=== PATIENT | male | born 1965 | race African-American/Black ===

== ENCOUNTER 2018-09-06 21:19 | Inpatient (IN) | payer MEDICAID ==
[~2018-09-06] VITALS: Ht 188 cm; Wt 147.4 kg
[2018-09-06] MEDS ORDERED: ASPIRIN 81MG TABLET PO ONE (22:45)
[2018-09-06 22:54] LABS: CHLORIDE 102 mEq/L (98-107)
[2018-09-06 22:55] LABS: BASOPHILS % 0.2 % (0.0-2.0); EOSINOPHILS % 1.9 % (0.0-5.0); HEMATOCRIT. 48.1 % (42.0-52.0); HEMOGLOBIN. 16.2 g/dL (14.0-18.0); LYMPHOCYTES % 38.4 % (20.0-50.0); MEAN CORPUSCULAR HEMOGLOBIN 27.8 pg (28.0-32.0); MEAN CORPUSCULAR VOLUME 82.5 fL (80.0-94.0); MEAN PLATELET VOLUME 8.6 fl (7.4-10.4); MONOCYTES % 9.9 % (2.0-8.0); NEUTROPHILS % 49.6 % (40.0-76.0); PLATELET 258 x1000/uL (130-400); PROTHROMBIN TIME 10.3 sec (9.6-11.0); RED BLOOD CELL COUNT 5.83 mill/uL (4.7-6.1); RED CELL DISTRIBUTION WIDTH 14.7 % (11.6-14.6)
[2018-09-06 22:59] LABS: ETHANOL BLOOD < 10 mg/dL
[2018-09-07] LABS: *AMPHETAMINES SCREEN URINE NEGATIVE (NEGATIVE); *BARBITURATES SCREEN URINE NEGATIVE (NEGATIVE); *BENZODIAZEPINES SCREEN URINE PRESUMTIVE POSITIVE (NEGATIVE); *COCAINE SCREEN URINE NEGATIVE (NEGATIVE)
[2018-09-07 00:02] LABS: CANNABINOID URINE SCREEN NEGATIVE (NEGATIVE); METHADONE URINE SCREEN NEGATIVE (NEGATIVE); OPIATES URINE SCREEN NEGATIVE (NEGATIVE); PHENCYCLIDINE URINE SCREEN NEGATIVE (NEGATIVE)
[2018-09-07 05:09] VITALS: BP 117/77
[2018-09-07] MEDS ORDERED: RIFA300C4 PO (05:27)
[2018-09-07] MEDS ORDERED: NEO/5DRO7 OP (05:27)
[2018-09-07] MEDS ORDERED: PRED12O OP (05:27)
[2018-09-07] MEDS ORDERED: NEPA1.7D OP (05:27)
[2018-09-07] MEDS ORDERED: hydrochlorothiazide (07:31)
[2018-09-07] MEDS ORDERED: amlodipine (07:31)
[2018-09-07 08:00] VITALS: BP 122/67
[2018-09-07] MEDS ORDERED: TETRACAINE 0.5% OPHTH DROPS 4ML ONE (08:52)
[2018-09-07] MEDS ORDERED: HYDROCODONE/ACETAMINOPHEN 5/325MG TABLET PO PRN (09:30)
[2018-09-07] MEDS ORDERED: DIPHENHYDRAMINE 50MG/ML VIAL IV PRN (09:30)
[2018-09-07] MEDS ORDERED: CLONIDINE 0.1MG TABLET PO PRN (09:30)
[2018-09-07] MEDS ORDERED: IPRATROPIUM/ALBUTEROL 0.5-3(2.5)MG/3ML NEB INH PRN (09:30)
[2018-09-07] MEDS ORDERED: ONDANSETRON HCL 4MG/2ML INJ IV PRN (09:30)
[2018-09-07] MEDS ORDERED: MORPHINE SULFATE 2 MG/ML CPJ (NOT FOR IM USE) IV PRN (09:30)
[2018-09-07] MEDS ORDERED: GUAIFENESIN 200MG/10ML SUGAR FREE UDC PO PRN (09:30)
[2018-09-07] MEDS ORDERED: ACETAMINOPHEN 325MG TABLET PO PRN (09:30)
[2018-09-07] MEDS ORDERED: DOCUSATE SODIUM 100MG CAPSULE PO PRN (09:30)
[2018-09-07] MEDS ORDERED: MAGNESIUM/ALUMINUM HYDROXIDE/SIMETHICONE 30ML UDC PO PRN (09:30)
[2018-09-07] MEDS ORDERED: DILTIAZEM HCL 5MG/ML 5ML VIAL IV NR (10:30)
[2018-09-07 11:25] VITALS: BP 132/85
[2018-09-07 12:04] LABS: BASOPHILS % 0.2 % (0.0-2.0); EOSINOPHILS % 1.5 % (0.0-5.0); HEMATOCRIT. 45.1 % (42.0-52.0); HEMOGLOBIN. 15.1 g/dL (14.0-18.0); LYMPHOCYTES % 37.1 % (20.0-50.0); MEAN CORPUSCULAR HEMOGLOBIN 27.6 pg (28.0-32.0); MEAN CORPUSCULAR VOLUME 82.4 fL (80.0-94.0); MEAN PLATELET VOLUME 8.5 fl (7.4-10.4); MONOCYTES % 8.4 % (2.0-8.0); NEUTROPHILS % 52.8 % (40.0-76.0); PLATELET 254 x1000/uL (130-400); RED BLOOD CELL COUNT 5.47 mill/uL (4.7-6.1); RED CELL DISTRIBUTION WIDTH 14.3 % (11.6-14.6)
[2018-09-07 12:13] LABS: CHLORIDE 102 mEq/L (98-107)
[2018-09-07 12:20] LABS: PHOSPHORUS 3.7 mg/dL (2.5-4.9)
[2018-09-07] MEDS ORDERED: AMIODARONE HCL 150 MG in DEXT 5% WATER 100 ML IV NR (13:00)
[2018-09-07] MEDS: APIXABAN 5 MG TABLET PO SCH ×2 (14:52→20:47)
[2018-09-07] MEDS: PREDNISOLONE ACETATE 1% OPHTH DROPS 1ML RIGHTEYE SCH ×4 (14:53→20:47)
[2018-09-07] MEDS: CIPROFLOXACIN 0.3% OPHTH SOLN 2.5ML RIGHTEYE SCH ×3 (14:53→20:53)
[2018-09-07 16:09] VITALS: BP 124/73
[2018-09-07] MEDS: AMIODARONE HCL 900 MG in DEXT 5% WATER 500 ML IV SCH (17:00)
[2018-09-07 20:00] VITALS: BP 120/82
[2018-09-07] MEDS: METOPROLOL TARTRATE 25MG TABLET PO SCH (20:46)
[2018-09-07 22:00] VITALS: BP 129/72
[2018-09-08] VITALS (15 sets, daily range): BP systolic 119–155; BP diastolic 45–107
[2018-09-08 00:22] LABS: CREATINE KINASE MB FRACTION 5.2 ng/mL (0.5-3.6)
[2018-09-08 06:43] LABS: BASOPHILS % 0.3 % (0.0-2.0); EOSINOPHILS % 1.6 % (0.0-5.0); HEMATOCRIT. 44.9 % (42.0-52.0); HEMOGLOBIN. 15.2 g/dL (14.0-18.0); LYMPHOCYTES % 36.8 % (20.0-50.0); MEAN CORPUSCULAR HEMOGLOBIN 28.1 pg (28.0-32.0); MEAN CORPUSCULAR VOLUME 83.3 fL (80.0-94.0); MEAN PLATELET VOLUME 8.5 fl (7.4-10.4); MONOCYTES % 7.8 % (2.0-8.0); NEUTROPHILS % 53.5 % (40.0-76.0); PLATELET 236 x1000/uL (130-400); RED BLOOD CELL COUNT 5.39 mill/uL (4.7-6.1); RED CELL DISTRIBUTION WIDTH 14.5 % (11.6-14.6)
[2018-09-08 07:13] LABS: CHLORIDE 103 mEq/L (98-107)
[2018-09-08 07:21] LABS: HDL CHOLESTEROL 46 mg/dL (40-59); LDL CHOLESTEROL 84 mg/dL (5-100)
[2018-09-08] MEDS: APIXABAN 5 MG TABLET PO SCH ×2 (07:50→21:09)
[2018-09-08] MEDS: PREDNISOLONE ACETATE 1% OPHTH DROPS 1ML RIGHTEYE SCH ×7 (07:52→21:07)
[2018-09-08] MEDS: METOPROLOL TARTRATE 25MG TABLET PO SCH (07:52)
[2018-09-08] MEDS: CIPROFLOXACIN 0.3% OPHTH SOLN 2.5ML RIGHTEYE SCH ×4 (07:53→21:55)
[2018-09-08] MEDS: LOSARTAN POTASSIUM 25 MG TABLET PO SCH ×2 (11:48→21:08)
[2018-09-08] MEDS: AMIODARONE HCL 900 MG in DEXT 5% WATER 500 ML IV SCH (17:06)
[2018-09-08] MEDS: METOPROLOL TARTRATE 50MG TABLET PO SCH (21:09)
[2018-09-08] MEDS: AMIODARONE HCL 200 MG TABLET PO SCH (21:09)
[2018-09-09] VITALS (9 sets, daily range): BP systolic 120–136; BP diastolic 63–89
[2018-09-09 06:45] LABS: BASOPHILS % 0.4 % (0.0-2.0); EOSINOPHILS % 1.7 % (0.0-5.0); HEMATOCRIT. 44.4 % (42.0-52.0); HEMOGLOBIN. 14.8 g/dL (14.0-18.0); LYMPHOCYTES % 38.7 % (20.0-50.0); MEAN CORPUSCULAR HEMOGLOBIN 27.7 pg (28.0-32.0); MEAN CORPUSCULAR VOLUME 83.2 fL (80.0-94.0); MEAN PLATELET VOLUME 8.4 fl (7.4-10.4); MONOCYTES % 7.3 % (2.0-8.0); NEUTROPHILS % 51.9 % (40.0-76.0); PLATELET 215 x1000/uL (130-400); RED BLOOD CELL COUNT 5.33 mill/uL (4.7-6.1); RED CELL DISTRIBUTION WIDTH 14.3 % (11.6-14.6)
[2018-09-09 07:50] LABS: CHLORIDE 105 mEq/L (98-107)
[2018-09-09] MEDS: METOPROLOL TARTRATE 50MG TABLET PO SCH (08:15)
[2018-09-09] MEDS: APIXABAN 5 MG TABLET PO SCH (08:15)
[2018-09-09] MEDS: AMIODARONE HCL 200 MG TABLET PO SCH (08:15)
[2018-09-09] MEDS: LOSARTAN POTASSIUM 25 MG TABLET PO SCH (08:16)
[2018-09-09] MEDS: CIPROFLOXACIN 0.3% OPHTH SOLN 2.5ML RIGHTEYE SCH ×2 (08:16→14:33)
[2018-09-09] MEDS: PREDNISOLONE ACETATE 1% OPHTH DROPS 1ML RIGHTEYE SCH ×3 (08:16→14:33)
[2018-09-09] MEDS ORDERED: OFLO5DRO3 RIGHTEYE (13:32)
== END 2018-09-09 17:25 | disposition home or self-care (01) | DRG 794 ==
LOC: ER 21:19 → 8WST 23:00 → EDBEDREQTM 09-07 01:37 → EDBEDREQ 09-07 01:37 → EDBEDREQDT 09-07 01:37 → ENRESERV 09-07 03:09 → 3WST 09-07 21:11
PROVIDERS: ADMIT Internal Medicine; ATTEND Internal Medicine
PROC: 08Q0XZZ Repair Right Eye, External Approach (ICD-10-PCS; principal; 2018-09-06)
DX: T81.31XA Disruption of external operation (surgical) wound, not elsewhere classified, initial encounter (principal); I48.92 Unspecified atrial flutter; S05.31XA Ocular laceration without prolapse or loss of intraocular tissue, right eye, initial encounter; Z94.7 Corneal transplant status; Z68.41 Body mass index [BMI] 40.0-44.9, adult; E66.9 Obesity, unspecified; F17.200 Nicotine dependence, unspecified, uncomplicated; G47.33 Obstructive sleep apnea (adult) (pediatric); Y83.8 Other surgical procedures as the cause of abnormal reaction of the patient, or of later complication, without mention of misadventure at the time of the procedure; I10 Essential (primary) hypertension; Z79.01 Long term (current) use of anticoagulants; Z79.899 Other long term (current) drug therapy; Z71.6 Tobacco abuse counseling; Y92.89 Other specified places as the place of occurrence of the external cause
CPT/HCPCS: 36415; 71045; 80061; 80305; 80320; 82550; 82553; 83735; 83880; 84100; 84443; 84484; 93005; 93306; 93970; 97161; 97165; 99285; J0282; J3490; J7060; G0480

== ENCOUNTER → 2018-09-06 | Emergency (ER) | payer MEDICAID ==
[~2018-09-06] VITALS: Ht 188 cm; Wt 138.0 kg
[~2018-09-06] MED LIST: APIX2.5T MT; APIX5TAB4 PO; BALANCED SALT IRRIG SOLN 15ML ONE; BUPIVACAINE HCL/PF 0.75% (7.5MG/ML) 10ML ONE; CIPROFLOXACIN 0.3% OPHTH SOLN 2.5ML ONE; DILT60TA35 PO; DIPHENHYDRAMINE 50MG/ML VIAL ONE; ESMOLOL HCL 10MG/ML 10ML VIAL IV ONE; FENTANYL CITRATE/PF 50MCG/ML 2ML VIAL ONE; FURO40TA5 MT; LIDOCAINE HCL 2%/EPINEPHRINE 1:100,000 20 ML VIAL INFIL ONE; LIDOCAINE HCL/PF 1% 10 MG/ML 5ML VIAL ONE; MIDAZOLAM HCL 2 MG/2 ML VIAL ONE; NEO/5DRO7 OP; NEO/POLYMYX B SULF/DEXAMETH OPHTH OINT 3.5GM ONE; NEPA1.7D OP; OFLO5DRO3 RIGHTEYE; PRED12O OP; PREDNISOLONE ACETATE 1% OPHTH DROPS 1ML ONE; PROPOFOL 200MG/20ML VIAL IV ONE; RIFA300C4 PO; TETRACAINE 0.5% OPHTH DROPS 4ML ONE; amlodipine; hydrochlorothiazide
[2018-09-06 12:25] LABS: BASOPHILS % 0.3 % (0.0-2.0); EOSINOPHILS % 1.4 % (0.0-5.0); HEMATOCRIT. 46.4 % (42.0-52.0); HEMOGLOBIN. 15.8 g/dL (14.0-18.0); LYMPHOCYTES % 32.8 % (20.0-50.0); MEAN CORPUSCULAR HEMOGLOBIN 27.9 pg (28.0-32.0); MEAN CORPUSCULAR VOLUME 81.9 fL (80.0-94.0); MEAN PLATELET VOLUME 8.4 fl (7.4-10.4); MONOCYTES % 7.8 % (2.0-8.0); NEUTROPHILS % 57.7 % (40.0-76.0); PLATELET 251 x1000/uL (130-400); RED BLOOD CELL COUNT 5.67 mill/uL (4.7-6.1); RED CELL DISTRIBUTION WIDTH 14.3 % (11.6-14.6)
[2018-09-06 12:32] LABS: CHLORIDE 105 mEq/L (98-107); PROTHROMBIN TIME 10.6 sec (9.6-11.0)
[2018-09-06] MEDS: HYDROMORPHONE HCL/PF 2MG/ML CPJ IV PRN ×2 (15:31→15:32)
[2018-09-06 15:32] VITALS: BP 123/66
[2018-09-06 16:18] LABS: CREATINE KINASE 650 IU/L (39-308)
[2018-09-06 16:19] LABS: CREATINE KINASE MB FRACTION 10.5 ng/mL (0.5-3.6)
== END ==
LOC: EDBD 10:48 → ER 10:48 → ENRESERV 15:04 → CANBEDREQ 09-07 21:03
DX: T81.30XA Disruption of wound, unspecified, initial encounter (principal); I10 Essential (primary) hypertension; Z98.890 Other specified postprocedural states
CPT/HCPCS: 12020; 36415; 80053; 82550; 82553; 84484; 85025; 85610; 86850; 86900; 86901; 93005; 96374; 99284; J1170; J1200; J2250; J2704; J3010; J3490; Z7610

== ENCOUNTER 2018-09-20 09:52 | Inpatient (IN) | payer MEDICAID ==
[~2018-09-20] VITALS: Ht 188 cm; Wt 149.2 kg
[~2018-09-20 09:52] MED LIST changes: -APIX2.5T MT; -APIX5TAB4 PO; -BALANCED SALT IRRIG SOLN 15ML ONE; -BUPIVACAINE HCL/PF 0.75% (7.5MG/ML) 10ML ONE; -CIPROFLOXACIN 0.3% OPHTH SOLN 2.5ML ONE; -DILT60TA35 PO; -DIPHENHYDRAMINE 50MG/ML VIAL ONE; -ESMOLOL HCL 10MG/ML 10ML VIAL IV ONE; -FENTANYL CITRATE/PF 50MCG/ML 2ML VIAL ONE; -FURO40TA5 MT; -LIDOCAINE HCL 2%/EPINEPHRINE 1:100,000 20 ML VIAL INFIL ONE; -LIDOCAINE HCL/PF 1% 10 MG/ML 5ML VIAL ONE; -MIDAZOLAM HCL 2 MG/2 ML VIAL ONE; -NEO/POLYMYX B SULF/DEXAMETH OPHTH OINT 3.5GM ONE; -PREDNISOLONE ACETATE 1% OPHTH DROPS 1ML ONE; -PROPOFOL 200MG/20ML VIAL IV ONE; -TETRACAINE 0.5% OPHTH DROPS 4ML ONE
[2018-09-20 10:46] LABS: BASOPHILS % 0.7 % (0.0-2.0); EOSINOPHILS % 0.1 % (0.0-5.0); HEMATOCRIT. 46.9 % (42.0-52.0); HEMOGLOBIN. 15.8 g/dL (14.0-18.0); LYMPHOCYTES % 12.5 % (20.0-50.0); MEAN CORPUSCULAR HEMOGLOBIN 27.8 pg (28.0-32.0); MEAN CORPUSCULAR VOLUME 82.4 fL (80.0-94.0); MEAN PLATELET VOLUME 8.1 fl (7.4-10.4); MONOCYTES % 6.9 % (2.0-8.0); NEUTROPHILS % 79.8 % (40.0-76.0); PLATELET 241 x1000/uL (130-400); RED BLOOD CELL COUNT 5.69 mill/uL (4.7-6.1); RED CELL DISTRIBUTION WIDTH 14.5 % (11.6-14.6)
[2018-09-20 10:48] LABS: CHLORIDE 104 mEq/L (98-107)
[2018-09-20 11:17] LABS: INR 1.1; PROTHROMBIN TIME 11.6 sec (9.6-11.0)
[2018-09-20] MEDS ORDERED: FUROSEMIDE 40MG/4ML VIAL IVP ONE (12:30)
[2018-09-20] MEDS ORDERED: SODIUM CHLORIDE 0.9% 500 ML IV ONE (12:45)
[2018-09-20] MEDS ORDERED: ONDANSETRON HCL 4MG/2ML INJ IV PRN (13:30)
[2018-09-20] MEDS ORDERED: ACETAMINOPHEN 325MG TABLET PO PRN (13:30)
[2018-09-20 15:40] VITALS: BP 150/78
[2018-09-20 15:47] VITALS: BP 150/78
[2018-09-20] MEDS ORDERED: APIX2.5T MT (16:07)
[2018-09-20] MEDS: METOPROLOL TARTRATE 25MG TABLET PO SCH ×2 (16:22→21:00)
[2018-09-20] MEDS: FUROSEMIDE 40MG/4ML VIAL IVP SCH (16:23)
[2018-09-20 16:35] VITALS: BP 97/67
[2018-09-20 19:57] LABS: *AMPHETAMINES SCREEN URINE NEGATIVE (NEGATIVE); *BARBITURATES SCREEN URINE NEGATIVE (NEGATIVE); *BENZODIAZEPINES SCREEN URINE NEGATIVE (NEGATIVE); *COCAINE SCREEN URINE PRESUMTIVE POSITIVE (NEGATIVE)
[2018-09-20 19:58] LABS: CANNABINOID URINE SCREEN PRESUMTIVE POSITIVE (NEGATIVE); METHADONE URINE SCREEN NEGATIVE (NEGATIVE); OPIATES URINE SCREEN NEGATIVE (NEGATIVE); PHENCYCLIDINE URINE SCREEN NEGATIVE (NEGATIVE)
[2018-09-20 20:39] VITALS: BP 100/60
[2018-09-20] MEDS: AMIODARONE HCL 200 MG TABLET PO SCH (21:46)
[2018-09-21] VITALS: BP 106/62
[2018-09-21 04:00] VITALS: BP 136/75
[2018-09-21] MEDS: FUROSEMIDE 40MG/4ML VIAL IVP SCH ×2 (06:33→19:06)
[2018-09-21 06:48] LABS: BASOPHILS % 0.3 % (0.0-2.0); EOSINOPHILS % 0.9 % (0.0-5.0); HEMOGLOBIN. 14.7 g/dL (14.0-18.0); MEAN CORPUSCULAR HEMOGLOBIN 28.2 pg (28.0-32.0); MEAN CORPUSCULAR VOLUME 82.5 fL (80.0-94.0); MEAN PLATELET VOLUME 8.3 fl (7.4-10.4); MONOCYTES % 7.3 % (2.0-8.0); NEUTROPHILS % 51.5 % (40.0-76.0); PLATELET 219 x1000/uL (130-400); RED BLOOD CELL COUNT 5.21 mill/uL (4.7-6.1); RED CELL DISTRIBUTION WIDTH 14.5 % (11.6-14.6)
[2018-09-21 08:00] VITALS: BP 127/71
[2018-09-21] MEDS: AMIODARONE HCL 200 MG TABLET PO SCH (09:44)
[2018-09-21] MEDS: METOPROLOL TARTRATE 25MG TABLET PO SCH (09:45)
[2018-09-21 10:16] LABS: CHLORIDE 106 mEq/L (98-107)
[2018-09-21] MEDS ORDERED: DILTIAZEM HCL 60MG TABLET PO SCH (14:00)
[2018-09-21] MEDS ORDERED: IPRATROPIUM/ALBUTEROL 0.5-3(2.5)MG/3ML NEB HHN PRN (15:15)
[2018-09-21] MEDS ORDERED: DILT60TA35 PO (15:30)
[2018-09-21] MEDS ORDERED: FURO40TA5 MT (15:30)
[2018-09-21] MEDS ORDERED: APIX5TAB4 PO (15:32)
[2018-09-21 16:00] VITALS: BP 130/88
[2018-09-21 19:46] VITALS: BP 128/84
== END 2018-09-21 21:10 | disposition home or self-care (01) | DRG 194 ==
LOC: ER 09:52 → 6WST 13:12 → ENRESERV 14:13
PROVIDERS: ADMIT Internal Medicine; ATTEND Internal Medicine
PROC: 5A09357 Assistance with Respiratory Ventilation, Less than 24 Consecutive Hours, Continuous Positive Airway Pressure (ICD-10-PCS; principal; 2018-09-20)
DX: I11.0 Hypertensive heart disease with heart failure (principal); J96.00 Acute respiratory failure, unspecified whether with hypoxia or hypercapnia; I50.23 Acute on chronic systolic (congestive) heart failure; E44.1 Mild protein-calorie malnutrition; I48.0 Paroxysmal atrial fibrillation; I48.92 Unspecified atrial flutter; F17.210 Nicotine dependence, cigarettes, uncomplicated; E66.9 Obesity, unspecified; G47.33 Obstructive sleep apnea (adult) (pediatric); F17.200 Nicotine dependence, unspecified, uncomplicated; I25.5 Ischemic cardiomyopathy; F14.90 Cocaine use, unspecified, uncomplicated; F11.90 Opioid use, unspecified, uncomplicated; J44.9 Chronic obstructive pulmonary disease, unspecified; F12.90 Cannabis use, unspecified, uncomplicated; Z79.01 Long term (current) use of anticoagulants; Z71.6 Tobacco abuse counseling; Z82.49 Family history of ischemic heart disease and other diseases of the circulatory system; Z71.3 Dietary counseling and surveillance; Z68.41 Body mass index [BMI] 40.0-44.9, adult; T45.515A Adverse effect of anticoagulants, initial encounter; Y92.89 Other specified places as the place of occurrence of the external cause
CPT/HCPCS: 36415; 71045; 80048; 80305; 83036; 83735; 83880; 84484; 93005; 94660; 96374; 99285; J1940; J7040

== ENCOUNTER 2019-05-24 07:38 | Emergency (ER) | payer MEDICAID ==
[~2019-05-24] VITALS: Ht 188 cm; Wt 132.0 kg
[~2019-05-24 07:38] MED LIST changes: +APIX5TAB4 PO; +DILT60TA35 PO; +FURO40TA5 MT; -amlodipine; -hydrochlorothiazide
[2019-05-24 11:08] VITALS: BP 114/78
[2019-05-24] MEDS ORDERED: CIPROFLOXACIN 0.3% OPHTH SOLN 2.5ML RIGHTEYE ONE (11:30)
== END 2019-05-24 12:29 | disposition home or self-care (01) ==
LOC: ER 07:38
DX: T86.842 Corneal transplant infection (principal); H57.11 Ocular pain, right eye; H54.7 Unspecified visual loss; I11.9 Hypertensive heart disease without heart failure; Z94.7 Corneal transplant status
CPT/HCPCS: 99283